=== PATIENT | female | born 1960 | race Caucasian/White ===

== ENCOUNTER → 2020-10-17 15:06 | Outpatient (CLI) | payer MEDICAID, SELFPAY ==
[2020-09-07 13:24] VITALS: BMI 34.1
--- NOTE | 2020-10-17 15:07 | MRI_ITS ---
STUDY: MRI CERVICAL SPINE WITHOUT CONTRAST REASON FOR EXAM: Female, 59 years old. radicular pain x4 years, rt TECHNIQUE: Standardized fat and water weighted pulse sequences were obtained in the sagittal and axial planes. COMPARISON: None FINDINGS: Normal foramen magnum and brainstem-cervical cord junction. Normal cervical lordosis. C2-3: Normal endplates. Normal disc height, signal and morphology. Normal central canal and intervertebral neural foramina. C3-4: There is minimal disc space narrowing and endplate spondylosis. There is no significant disc herniation, central canal or foraminal stenosis. C4-5: There is mild disc space narrowing and endplates spondylosis. Minimal disc osteophyte complex without significant central canal stenosis. Uncovertebral and facet arthropathy with minimal right and mild left foraminal stenosis. C5-6: There is mild disc space narrowing and endplates spondylosis. Mild disc osteophyte complex with mild central canal stenosis. Uncovertebral and facet arthropathy with mild right and mild left foraminal stenosis. C6-7: There is moderate disc space narrowing and endplates spondylosis. Mild disc osteophyte complex with mild central canal stenosis. Uncovertebral arthropathy with moderate right and moderate left foraminal stenosis. C7-T1: There is minimal disc space narrowing and endplate spondylosis. There is no significant disc herniation, central canal or foraminal stenosis. Bilateral facet arthropathy Normal cervical cord. MRI/Spine Cervical (Routine) IMPRESSION: C6/C7: Moderate right and moderate left foraminal stenosis. Electronically Signed: Edis Chávez MD at 14:44 EDT Tel , Service support ,
== END ==
PROVIDERS: Referring Provider Orthopaedic Surgery; Visit Provider Orthopaedic Surgery
DX: M50.10 Cervical disc disorder with radiculopathy, unspecified cervical region (principal); M40.209 Unspecified kyphosis, site unspecified
CPT/HCPCS: 72141